=== PATIENT | male | born 1970 | race Caucasian/White ===

== ENCOUNTER 2016-12-25 17:29 | Emergency (ER) | payer SELFPAY ==
[2016-12-25] MEDS: KETOROLAC TROMETHAMINE 30 MG/1ML VIAL IVP ONE (17:55)
--- NOTE | 2016-12-25 17:56 | ED Physician Documentation ---
Abdominal Pain - HISTORIAN Historian: patient - HPI Stated Complaint: chest pain Chief Complaint: Abdominal Pain Additonal Information: started today, bilat costophrenic angles R>L inbelt like fashion around to back. No other symptoms, No SOA, no sweating, No nausea. Made him feel like he had to go to the bathroom earlier, no relief after going. Sharp stabbing, can't get comfortable. no prev episodes, takes PPI daily. Onset: hours Duration: waxing, waning Timing: still present Context: denies: out of country travel, bad food, recent trauma Severity: moderate Quality: sharp, stabbing Associated Symptoms: none Exacerbated by: nothing Relieved by: nothing Further Comments: no - ROS CONST: no problems GI/: none CVS/RESP: none EYES/ENT: none MS/SKIN/LYMPH: none NEURO/PSYCH: none - SOCIAL HX Smoking History: cigarettes Alcohol Use: occasionally Drug Use: none - FAMILY HX Family History: kidney stones (sister) - PAST HX Past History: GERD Ischemic Bowel Risk Factors: none Other History: none Surgeries/Procedures: none Home Medications: Ambulatory Orders Medication Instructions Recorded Unobtainable [Unobtainable] 12/25/16 Allergies/Adverse Reactions: Allergies Allergy/AdvReac Type Severity Reaction Status Date / Time acetaminophen [From Percocet] Allergy Intermediate Itchy Skin Verified 12/25/16 17:57 oxycodone HCl [From Percocet] Allergy Intermediate Itchy Skin Verified 12/25/16 17:57 - VITAL SIGNS Vital Signs: Vital Signs Temp Pulse Resp BP Pulse Ox 97.8 F 92 H 17 145/101 99 12/25/16 17:29 12/25/16 17:29 12/25/16 17:29 12/25/16 17:29 12/25/16 17:29 - REVIEWED ASSESSMENTS Nursing Assessment Reviewed: Yes Vitals Reviewed: Yes Progress - Results/Orders Results/Orders: spoke with Repairer Shoe Sticks Leroy at [facility] and he will phone us back after talking to surgeon. [facility] is accepting transfer of this patient 1922 ED Results Lab/Radiology - Lab Results Lab Results: Lab Results 12/25/16 12/25/16 12/25/16 18:30 17:50 17:50 WBC 19.09 K/ul H K/ul (4.00-12.00) RBC 4.51 M/ul M/ul (3.90-5.20) Hgb 14.6 g/dL g/dL (12.0-18.0) Hct 41.6 % % (37.0-53.0) MCV 92.1 fl fl (80.0-100.0) MCH 32.3 pg pg (28.0-34.0) MCHC 35.1 g/dL g/dL (30.0-36.0) RDW 12.4 % % (11.3-14.3) Plt Count 328 K/mm3 K/mm3 (130-400) Neut % (Auto) 67.8 % % (39.0-79.0) Lymph % (Auto) 21.5 % % (16.0-50.0) [place] % (Auto) 8.6 % % (0.0-11.0) Eos % (Auto) 0.5 % % (0.0-6.8) Baso % (Auto) 0.7 (0.0-1.5) Neut # (Auto) 12.9 # k/uL H # k/uL (1.4-7.7) Lymph # (Auto) 4.1 # k/uL H # k/uL (0.6-4.0) [place] # (Auto) 1.6 # k/uL H # k/uL (0.0-0.9) Eos # (Auto) 0.1 # k/uL # k/uL (0.0-0.6) Baso # (Auto) 0.1 # k/uL # k/uL (0.0-0.5) Reactive Lymphs % 1.0 % % (0.0-5.0) Reactive Lymphs # 0.2 # k/uL # k/uL (0.0-0.8) Sodium 134 mmol/L L mmol/L (137-145) Potassium 2.9 mmol/L L mmol/L (3.5-5.1) Chloride 99 mmol/L mmol/L (98-107) Carbon Dioxide 22 mmol/L mmol/L (22-30) BUN 15 mg/dL mg/dL (9-20) Creatinine 0.70 mg/dL mg/dL (0.66-1.25) Estimated Creat Clear 142 Est GFR ( Amer) > 60 (60 - ) Est GFR (Non-Af Amer) > 60 (60 - ) Glucose 104 mg/dL mg/dL (74-106) Calcium 9.3 mg/dL mg/dL (8.4-10.2) Total Bilirubin 1.0 mg/dL mg/dL (0.2-1.3) AST 59 U/L H U/L (15-46) ALT 39 U/L U/L (13-69) Alkaline Phosphatase 87 U/L U/L (38-126) Total Protein 7.6 g/dL g/dL (6.3-8.2) Albumin 4.5 g/dL g/dL (3.5-5.0) Urine Color Yellow (YELLOW) Urine Appearance Clear (CLEAR) Urine pH 5.5 (5.0 - 8.0) Ur Specific [place] 1.015 (1.010-1.030) Urine Protein Negative mg/dL mg/dL (NEGATIVE) Urine Ketones Trace mg/dL mg/dL (NEGATIVE) Urine Occult Blood Negative (NEGATIVE) Urine Nitrite Negative (NEGATIVE) Urine Bilirubin Negative (NEGATIVE) Urine Urobilinogen 0.2 Eu Eu (0.2-1.0) Ur Leukocyte Esterase Negative (NEGATIVE) Urine Glucose Negative mg/dL mg/dL (NEGATIVE) - Radiology Radiology Impressions: CT shows enlarged GB with inflammatory changes - Orders Orders: ED Orders Category Date Time Status CT ABD & PELVIS W/O CON Stat Exams 12/25/16 Completed CBC/PLATELET/DIFF Routine Lab 12/25/16 17:50 Completed CMP Routine Lab 12/25/16 17:50 Completed UA W MICRO [UA W/MICRO IF INDICATED] Routine Lab 12/25/16 18:30 Completed Ketorolac Tromethamine [Toradol] Med 12/25/16 17:47 Discontinued 30 mg IVP NOW ONE EKG WITH COMPARISON Stat Ther 12/25/16 Ordered Abdominal Pain Physical Exam - Physical Exam General Appearance: alert, mild distress EENT: ENT inspection normal, pharynx normal, no signs of dehydration NECK: normal inspection, supple. No: carotid bruit RESPIRATORY: no resp distress, chest non-tender, breath sounds normal CVS: reg rate & rhythm ABDOMEN: soft, no distension (TTP over GB fossa, neg murphys) BACK: normal inspection, CVA tenderness (R), CVA tenderness (L) SKIN: warm/dry, normal color EXTREMITIES: non-tender, normal range of motion NEURO: oriented X3, mood/affect nml, cognition normal Vital Signs: Vital Signs Temp Pulse Resp BP Pulse Ox 97.8 F 92 H 17 145/101 99 12/25/16 17:29 12/25/16 17:29 12/25/16 17:29 12/25/16 17:29 12/25/16 17:29 Discharge Clincal Impression: Acute cholecystitis without calculus, Hypokalemia Referrals: Primary Doctor,No [Primary Care Provider] - 2 Days Condition: Stable Disposition: 02 XFER SHT-TRM HOSP Decision to Admit: NO Date of Decison to Admit: 12/25/16 Decision Time: 19:31
[2016-12-25 17:59] LABS: BASOPHILS % 0.7 (0.0-1.5); EOSINOPHILS % 0.5 % (0.0-6.8); MEAN CORPUSCULAR HEMOGLOBIN 32.3 pg (28.0-34.0); MEAN CORPUSCULAR VOLUME 92.1 fl (80.0-100.0); MONOCYTES % 8.6 % (0.0-11.0); NEUTROPHILS # 12.9 # k/uL (1.4-7.7)
[2016-12-25 18:07] LABS: eGFR (African) > 60; eGFR (Non-African) > 60
[2016-12-25 18:32] LABS: APPEARANCE,URINE Clear (CLEAR); COLOR,URINE Yellow (YELLOW); OCCULT BLOOD,URINE Negative (NEGATIVE); PH URINE 5.5 (5.0 - 8.0); UROBILINOGEN URINE 0.2 Eu (0.2-1.0)
--- NOTE | 2016-12-25 19:12 | Diagnostic Imaging Report ---
SUMIT GUZMÁN [facility] [address] [facility] [address] [place], [place]. [address] Report Submission Date: Dec 25, 2016 6:29:56 PM CDT Patient Study Name: LARISSA PATRICK Date: Dec 25, 2016 5:53:55 PM CDT Modality Type: CT\SR Gender: M Description: CT ABD & PELVIS W/O CO : 74 Institution: [facility] Physician: SUMIT GUZMÁN Examination: CT Abdomen/pelvis History: Abdominal discomfort. Comparison exams: None available Technique: CT Abdomen/pelvis without contrast protocol. Findings: Liver, spleen, adrenal glands, and pancreas are without irregularity given exam technique. 2.5 cm hepatic cyst. Gallstone hydropic measuring 8.9 cm length. Mild adjacent inflammatory changes. Kidneys demonstrate scattered calyceal 1 mm calcifications. Ureters are nondilated in their course through the abdomen and pelvis. Bladder margins within normal limits. Abdominal aorta with mild peripheral atherosclerotic disease. No aneurysmal dilation. Cardiac silhouette not enlarged. No pericardial effusion. Bowel without contrast limiting evaluation. No evidence for acute mesenteric inflammation or free air. Stool throughout the large bowel limiting sensitivity. Appendix is visualized and is without inflammatory changes. Few scattered sigmoid diverticula. No adjacent inflammatory changes. Osseous structures demonstrate mild degenerative changes. Lung bases without infiltrate. Impression: Hydropic gallbladder with adjacent inflammatory changes. Recommend right upper quadrant ultrasound to further evaluate. Sigmoid diverticulosis. No evidence for acute diverticulitis. Bilateral renal nephrolithiasis. No evidence for ureterolithiasis. Hepatic cyst. Electronically signed on Dec 25, 2016 6:29:56 PM CDT by: Klever MCCALL
[2016-12-25 20:34] VITALS: BP 107/81
== END 2016-12-25 20:10 | disposition short-term general hospital (02) ==
LOC: ED 17:29
DX: K81.0 Acute cholecystitis (principal); E87.6 Hypokalemia
CPT/HCPCS: 74176; 80053; 81002; 85025; J1885; 96372; 99284; S1016

== ENCOUNTER 2017-06-20 09:50 | Emergency (ER) | payer SELFPAY ==
--- NOTE | 2017-06-20 10:18 | ED Physician Documentation ---
General Adult - HISTORIAN Historian: patient - HPI Stated Complaint: 1. foot puncture wound 2. ? 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 Pt was barefoot and drilled into the dorsum of his R foot. Pt has no problems moving his foot or toes. Additionally, pt is concerned that he may have liver problems and thinks that he is dehydrated. Pt states that his a heavy smoker and a heavy drinker, drinking a pint/day. Pt appears flushed in ER. Pt presents with elevated iq=235/121. Pt states that he was on two bp meds at one time but discontinued that some time ago. Tetanus status is unknown. Pt denies cough, sore throat, dysuria or other sx.) - ROS CONST: no problems EYES/ENT: none CVS/RESP: none GI/: none MS/SKIN/LYMPH: other (puncture wound dorsum of R foot) - PAST HX Past History: hypertension, other (GERD) Surgeries/Procedures: cholecystectomy, other (dry mixer injury to R great toe) Allergies/Adverse Reactions: Allergies Allergy/AdvReac Type Severity Reaction Status Date / Time acetaminophen [From Percocet] Allergy Intermediate Itchy Skin Verified 06/20/17 10:28 oxycodone HCl [From Percocet] Allergy Unknown Itchy Skin Verified 06/20/17 10:28 Home Medications: Ambulatory Orders Medication Instructions Recorded Omeprazole [Prilosec] 20 mg PO DAILY 06/20/17 - SOCIAL HX Smoking History: cigarettes, greater than 1 pack/day Alcohol Use: heavy - FAMILY HX Family History: No - VITAL SIGNS Vital Signs: Vital Signs Temp Pulse Resp BP Pulse Ox 107/81 12/25/16 20:29 - REVIEWED ASSESSMENTS Nursing Assessment Reviewed: Yes Vitals Reviewed: Yes Procedures Wound Location: lower extremity (R foot) Wound Length: 1.5 cm puncture Wound's Depth, Shape: other (puncture) Wound Explored: clean Irrigated w/ Saline (ccs): 30 Betadine Prep?: No (Hibiclens) Anesthesia: 1% Lidocaine Volume of Anesthetic: 3 cc Wound Debrided: minimal Wound Repaired With: sutures Suture Size/Type: 4:0, nylon Number of Sutures: 3 Layer Closure?: No Progress - Progress Progress: x-ray R foot: 1. Question of a small cortical fracture of the first metatarsal head neck junction medially. This is more likely to be a true fracture if this is the area of the patient's skin wound. [This is not the area of pt's skin wound.] 2. No other evidence of acute fracture throughout the right foot. 3. 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 1+ blood urine dip ? uti Will start Lisinopril 10 mg qd or bid for pt's HTN. Pt will monitor bp and take twice daily if bp>140/90 after qd dosing. Pt will establish with pcp and f /u for HTN eval and suture removal and for mildly elevated LFT's. Rx Augmentin (875/125). Take one by mouth every 12 hrs for 7 days. Rx Lisinopril 10 mg po qd. (Will take bid if bp remains >140/90 and f/u pcp.) General Adult Physical Exam - PHYSICAL EXAM GENERAL APPEARANCE: mild distress EENT: pharynx normal NECK: normal inspection, supple RESPIRATORY: no resp distress, chest non-tender, breath sounds normal CVS: reg rate & rhythm, heart sounds normal ABDOMEN: soft, no organomegaly, normal bowel sounds BACK: normal inspection, no CVA tenderness SKIN: other (puncture wound 1 cm, dorsum of R foot (mid-foot)) EXTREMITIES: normal range of motion, other (puncture wound 1 cm, dorsum of R foot (mid-foot)) NEURO: oriented X3, motor nml, sensation nml Discharge Clincal Impression: elevated wbc, mildly elevated LFT's Puncture wound of right foot Qualifiers: Encounter type: initial encounter Qualified Code(s): S91.331A - Puncture wound without foreign body, right foot, initial encounter HTN (hypertension) Qualifiers: Hypertension type: unspecified Qualified Code(s): I10 - Essential (primary) hypertension Hematuria Qualifiers: Hematuria type: unspecified type Qualified Code(s): R31.9 - Hematuria, unspecified Referrals: Primary Doctor,No [Primary Care Provider] - Condition: Good Disposition: 01 HOME, SELF-CARE Decision to Admit: NO Decision Time: 12:30
[2017-06-20] MEDS: 0.9 % SODIUM CHLORIDE 1,000 ML IV ONE (10:50)
--- NOTE | 2017-06-20 10:53 | Diagnostic Imaging Report ---
BRENTON MERAZ [facility] [address] [facility] [address] [address] Report Submission Date: Jun 20, 2017 10:51:46 AM CDT Patient Study Name: LARISSA PATRICK Date: Jun 20, 2017 10:29:25 AM CDT Modality Type: DX Gender: M Description: LOWER EXTREMITY : 74 Institution: [facility] Physician: BRENTON MERAZ HISTORY: 47-year-old male with right foot pain, puncture wound. COMPARISON: None available. TECHNIQUE: 3 views of the right foot were performed. FINDINGS: On the AP film, there is question of a fracture of the first metatarsal head-neck junction with step off of the medial cortex. This is not visualized on the other two views however. No other evidence of fracture about the right foot. There is moderate osteoarthritis of the first MTP joint, with joint space narrowing and marginal osteophytes present. There is mild osteoarthritis of the midfoot. There is an accessory navicular bone. No radiopaque foreign bodies are identified in the soft tissues. IMPRESSION: 1. Question of a small cortical fracture of the first metatarsal head neck junction medially. This is more likely to be a true fracture if this is the area of the patient's skin wound. 2. No other evidence of acute fracture throughout the right foot. 3. 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 Electronically signed on Jun 20, 2017 10:51:46 AM CDT by: Dilshad MCCALL
[2017-06-20 11:10] LABS: BASOPHILS % 0.6 (0.0-1.5); EOSINOPHILS % 1.1 % (0.0-6.8); MEAN CORPUSCULAR HEMOGLOBIN 34.3 pg (28.0-34.0); MEAN CORPUSCULAR VOLUME 96.8 fl (80.0-100.0); MONOCYTES % 5.2 % (0.0-11.0); NEUTROPHILS # 15.6 # k/uL (1.4-7.7)
[2017-06-20] MEDS: DIPH,PERTUSS(ACELL),TET VAC/PF 0.5 ML DISP.SYRIN IM ONE (11:10)
[2017-06-20] MEDS: Lidocaine 1% 5ml(IM or SUTURE)(PAIN CLINIC) IJ ONE (11:15)
[2017-06-20 11:17] LABS: eGFR (African) > 60; eGFR (Non-African) > 60
[2017-06-20 12:34] VITALS: BP 169/119
[2017-06-21 07:59] LABS: CANNABINOIDS NON NEGATIVE ng/mL (< 50); METHYLENEDIOXYMETHAMPHETAMINE NEGATIVE ng/mL (<500)
[2017-06-21 08:02] LABS: APPEARANCE,URINE CLEAR (CLEAR); COLOR,URINE YELLOW (YELLOW); OCCULT BLOOD,URINE 1+ (NEGATIVE); PH URINE 6.5 (5.0 - 8.0); UROBILINOGEN URINE 0.2 Eu (0.2-1.0)
[2017-06-25 10:11] LABS: CANNABINOIDS CONFIRMATION Negative ng/mL (<15)
== END 2017-06-20 12:00 | disposition home or self-care (01) ==
LOC: ED 09:50
DX: S91.331A Puncture wound without foreign body, right foot, initial encounter (principal); I10 Essential (primary) hypertension; R31.9 Hematuria, unspecified; Z23 Encounter for immunization; X58.XXXA Exposure to other specified factors, initial encounter; Y99.9 Unspecified external cause status
CPT/HCPCS: 73630; 80053; 80320; 80377; 81002; 84550; 85025; 90471; 90715; 96365; 99283; G0480; G0481; J7030; S1016

== ENCOUNTER 2017-06-20 16:45 | Emergency (ER) | payer SELFPAY ==
[2017-06-20] MEDS: METOPROLOL TARTRATE 5 MG/5 ML VIAL IVP ONE (17:47)
[2017-06-20] MEDS: SODIUM CHLORIDE 0.9% IV ONE (18:09)
[2017-06-20] MEDS: LORazepam 2 MG/ML VIAL IVP ONE ×2 (18:09→18:50)
[2017-06-20] MEDS: CEFTRIAXONE SODIUM IV ONE (18:09)
[2017-06-20] MEDS: cefTRIAXone SODIUM 1 GM VIAL ONE (18:10)
[2017-06-20] MEDS: LORazepam 2 MG/ML VIAL ONE (18:10)
[2017-06-20] MEDS: 0.9 % SODIUM CHLORIDE 250 ML IV ONE (18:10)
--- NOTE | 2017-06-20 18:55 | ED Physician Documentation ---
General Adult - HISTORIAN Historian: patient - HPI Stated Complaint: c/o Low abd swelling/HTN/skin discoloration-temp change Chief Complaint: General Adult Onset: hours Timing: still present Severity: moderate Further Comments: yes (Pt is 47 yo male seen here earlier today after puncturing his foot with a drill. Pt had an elevated wbc count and elevated BP and was d/c'd with rx for abx and htn. Pt returned late in the afternoon with c /o groin swelling and a number of other complaints. Though many hours had passed since he left the ER, he "did not have time" to fill his rx's for abx and htn med. Pt tested pos for methamphetamine and marijuana this am and states he is a heavy drinker. 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 R great toe) Allergies/Adverse Reactions: Allergies Allergy/AdvReac Type Severity Reaction Status Date / Time acetaminophen [From Percocet] Allergy Intermediate Itchy Skin Verified 06/20/17 17:24 oxycodone HCl [From Percocet] Allergy Unknown Itchy Skin Verified 06/20/17 17:24 Home Medications: Ambulatory Orders Medication Instructions Recorded Omeprazole [Prilosec] 20 mg PO DAILY 06/20/17 - SOCIAL HX Smoking History: greater than 1 pack/day Alcohol Use: heavy Drug Use: marijuana, methamphetamines - FAMILY HX Family History: No - VITAL SIGNS Vital Signs: Vital Signs Temp Pulse Resp BP Pulse Ox 98.1 F 104 H 18 182/119 96 06/20/17 16:45 06/20/17 16:45 06/20/17 16:45 06/20/17 16:45 06/20/17 16:45 - REVIEWED ASSESSMENTS Nursing Assessment Reviewed: Yes Vitals Reviewed: Yes Progress - Progress Progress: BP 186/121 Metoprolol 5 mg IV Rocephin 2 gm IV (Pt had not filled rx for abx after puncture wound injury) Ativan 1 mg IV BP much improved after Ativan BP 143/99 Ativan 1 mg IV Continue Augmentin and Lisinopril as rx'd this am. ED Results Lab/Radiology - Orders Orders: ED Orders Category Date Time Status Place IV Lock 1T Care 06/20/17 17:16 Active 0.9 % Sodium Chloride [Sodium Chloride] 250 ml Med 06/20/17 17:58 Discontinued IV .STK-MED LORazepam [Ativan] Med 06/20/17 17:54 Discontinued 1 mg IVP NOW ONE LORazepam [Ativan] Med 06/20/17 18:46 Discontinued 1 mg IVP NOW ONE LORazepam [Ativan] Med 06/20/17 17:58 Discontinued 2 mg .ROUTE .STK-MED ONE Metoprolol Tartrate [Toprol] Med 06/20/17 17:16 Discontinued 5 mg IVP NOW ONE cefTRIAXone SODIUM [Rocephin] Med 06/20/17 17:58 Discontinued 2 gm .ROUTE .STK-MED ONE cefTRIAXone SODIUM [Rocephin] 2 gm Med 06/20/17 17:53 Discontinued 0.9 % Sodium Chloride [Sodium Chloride] 50 ml IV NOW General Adult Physical Exam - PHYSICAL EXAM GENERAL APPEARANCE: moderate distress (anxious) EENT: eye inspection normal, pharynx normal NECK: normal inspection, supple RESPIRATORY: no resp distress, chest non-tender, breath sounds normal CVS: tachycardia ABDOMEN: soft, no organomegaly, normal bowel sounds SKIN: warm/dry, other (facial flushing) EXTREMITIES: normal range of motion, other (R foot puncture wound, sutured ( here this am)) NEURO: oriented X3, motor nml, sensation nml, other (anxious) Discharge Clincal Impression: Anxiety Hematuria Qualifiers: Hematuria type: unspecified type Qualified Code(s): R31.9 - Hematuria, unspecified HTN (hypertension) Qualifiers: Hypertension type: unspecified Qualified Code(s): I10 - Essential (primary) hypertension Referrals: Primary Doctor,No [Primary Care Provider] - Condition: Stable Disposition: 01 HOME, SELF-CARE Decision to Admit: NO Decision Time: 19:17
[2017-06-20 19:57] VITALS: BP 138/104
== END 2017-06-20 19:30 | disposition home or self-care (01) ==
LOC: ED 16:45
DX: F41.9 Anxiety disorder, unspecified (principal); I10 Essential (primary) hypertension; R31.9 Hematuria, unspecified
CPT/HCPCS: 96365; 96375; 99283; J0696; J2060; J3490; S1016

== ENCOUNTER 2017-06-21 09:56 | Emergency (ER) | payer SELFPAY ==
--- NOTE | 2017-06-21 10:09 | ED Physician Documentation ---
General Adult - HISTORIAN Historian: patient - HPI Stated Complaint: near syncope Chief Complaint: General Adult Onset: minutes Timing: still present Severity: moderate Further Comments: yes (Pt is a 47 yo male, seen here twice yesterday. Initially for a puncture wound to his foot and for high blood pressure. Pt had elevated wbc. Pt was rx'd Lisinopril and Augmentin, but had not filled these by the time of his second visit many hours later. Pt appeared very anxious and "may have used" methamphetamine the evening before his visit. Pt stated that he drinks large amounts of alcohol. Pt returns this am with a constilation of sx, again appearing anxious, and again not having filled his rx's. Pt was given IV Rocephin yesterday at his second visit, as he seemed to be having difficulty with medication compliance. Pt appears anxious, with elevated bp. Yesterday's bp was much improved with anxiolytic med.) - ROS CONST: other (anxious) EYES/ENT: none CVS/RESP: shortness of breath (transient) GI/: none MS/SKIN/LYMPH: none NEURO/PSYCH: other (anxiety) - PAST HX Past History: hypertension, other (GERD) Surgeries/Procedures: cholecystectomy, other (hair spring winder injury to R great toe) Allergies/Adverse Reactions: Allergies Allergy/AdvReac Type Severity Reaction Status Date / Time acetaminophen [From Percocet] Allergy Intermediate Itchy Skin Verified 06/21/17 10:11 oxycodone HCl [From Percocet] Allergy Unknown Itchy Skin Verified 06/21/17 10:11 Home Medications: Ambulatory Orders Medication Instructions Recorded Omeprazole [Prilosec] 20 mg PO DAILY 06/20/17 Amoxicillin/Potassium Clav 1 each PO Q12H #14 tablet 06/21/17 [Augmentin 875-125 Tablet] Lisinopril [Zestril] 10 mg PO BID #60 tablet 06/21/17 - SOCIAL HX Smoking History: cigarettes, greater than 1 pack/day Alcohol Use: heavy Drug Use: marijuana, methamphetamines - FAMILY HX Family History: No - VITAL SIGNS Vital Signs: Vital Signs Temp Pulse Resp BP Pulse Ox 138/104 06/20/17 19:51 - REVIEWED ASSESSMENTS Nursing Assessment Reviewed: Yes Vitals Reviewed: Yes Progress - Progress Progress: NS 500 cc IVF Ativan 1 mg IV BP improved after Ativan Rocephin 1 mg IV Establish with a primary provider for follow up if needed for stress/anxiety. Rx Augmentin (875/125). Take one every 12 hrs for 7 days. Take with food or milk to avoid stomach upset. Rx Lisinopril 10 mg. Take one every 12 hrs for elevated blood pressure. Blood pressure greater that 140/90. - EKG/XRAY/CT EKG: NSR (HR=98; normal axis; normal MD interval; non-specific ST changes.) XRAY: chest (neg) General Adult Physical Exam - PHYSICAL EXAM GENERAL APPEARANCE: moderate distress (anxious) EENT: pharynx normal NECK: normal inspection, supple RESPIRATORY: no resp distress, chest non-tender, breath sounds normal CVS: reg rate & rhythm, heart sounds normal, equal pulses ABDOMEN: soft, no organomegaly, normal bowel sounds BACK: normal inspection, no CVA tenderness SKIN: warm/dry, other (facial flushing) EXTREMITIES: non-tender, normal range of motion, no evidence of injury NEURO: oriented X3, CN's nml as tested, motor nml, sensation nml, other (anxious ) Discharge Clincal Impression: Anxiety, hypertension, elevated wbc, mild rhabdomyolysis, recent puncture wound R foot Prescriptions: Amoxicillin/Potassium Clav [Augmentin 875-125 Tablet] 1 each PO Q12H #14 tablet Lisinopril [Zestril] 10 mg PO BID #60 tablet Referrals: Primary Doctor,No [Primary Care Provider] - 2 Days Condition: Stable Disposition: 01 HOME, SELF-CARE Decision to Admit: NO Decision Time: 12:45
[2017-06-21] MEDS: 0.9 % SODIUM CHLORIDE 500 ML IV ONE (10:44)
[2017-06-21 10:50] LABS: APPEARANCE,URINE Clear (CLEAR); COLOR,URINE Yellow (YELLOW); OCCULT BLOOD,URINE Negative (NEGATIVE); PH URINE 6.5 (5.0 - 8.0); UROBILINOGEN URINE 0.2 Eu (0.2-1.0)
[2017-06-21 10:51] LABS: BASOPHILS % 0.7 (0.0-1.5); MEAN CORPUSCULAR HEMOGLOBIN 33.7 pg (28.0-34.0); MEAN CORPUSCULAR VOLUME 97.7 fl (80.0-100.0); MONOCYTES % 5.6 % (0.0-11.0); NEUTROPHILS # 12.1 # k/uL (1.4-7.7)
[2017-06-21 10:59] LABS: eGFR (African) > 60; eGFR (Non-African) > 60
[2017-06-21] MEDS: LORazepam 2 MG/ML VIAL IVP ONE (11:18)
--- NOTE | 2017-06-21 11:32 | Diagnostic Imaging Report ---
BRENTON MERAZ [facility] [address] [facility] [address] Report Submission Date: Jun 21, 2017 11:28:48 AM CDT Patient Study Name: LARISSA PATRICK Date: Jun 21, 2017 10:44:27 AM CDT Modality Type: DX Gender: M Description: CHEST : 74 Institution: [facility] Physician: BRENTON MERAZ PA and lateral chest Clinical history: Near-syncopal episode. Elevated white cell count. </FINDINGS/> Examination of the chest in PA and lateral views with no prior film for comparison demonstrates the lungs to be clear. Cardiovascular and mediastinal silhouettes are normal. Bony thorax is intact. </IMPRESSION/> 1. Negative chest. Electronically signed on Jun 21, 2017 11:28:48 AM CDT by: Demetrio MCCALL
[2017-06-21] MEDS ORDERED: cefTRIAXone SODIUM 1 GM VIAL ONE (12:10)
[2017-06-21] MEDS: cefTRIAXone SODIUM 1 GM in 0.9 % SODIUM CHLORIDE 50 ML IV ONE (12:10)
[2017-06-21 12:44] VITALS: BP 138/92
== END 2017-06-21 12:38 | disposition home or self-care (01) ==
LOC: ED 09:56
DX: F41.9 Anxiety disorder, unspecified (principal); I10 Essential (primary) hypertension
CPT/HCPCS: 71046; 80053; 81002; 82550; 82553; 83880; 84484; 85025; 85379; 87040; J2060; J7060; S1016